=== PATIENT | female | born 1975 | race Caucasian/White ===

== ENCOUNTER → 2018-09-03 | Outpatient (CLI) | payer BC ==
[~2018-09-03] MED LIST: ALBU90OI INH; BC PILLS; CALCAVITDA PO; CEPH500 PO; CLIN150 PO; DOXY100 PO; Daily Multiple1 EACH PO; ENOX40I SQ; FABB PO; HYDACE5 PO; LOPE2C PO; MAGNESIUM PO; METCAR500 PO; NEPHROCAP PO; ONDA4 PO; ONDA4ODT MM; POTASSIUM; POTASSIUM OTC PO; PREN-16 PO; PROM25 PO; Protonix40 MG PO; TRAM50 PO; Zofran8 MG PO; [UNRECOGNIZED DRUG - OTHER]; [UNRECOGNIZED DRUG - OTHER] PO
[2018-09-04 08:50] LABS: Candida species (DNA Probe) Negative (NEGATIVE); G. vaginalis (DNA Probe) Positive (NEGATIVE); T. vaginalis (DNA Probe) Negative (NEGATIVE)
== END | disposition home or self-care (01) ==
LOC: LAB SHORT 15:18 → LAB SRC 15:18
PROVIDERS: Nurse Practitioner Family
DX: N94.9 Unspecified condition associated with female genital organs and menstrual cycle (principal)
CPT/HCPCS: 87077; 87086; 87186; 87480; 87510; 87660